=== PATIENT | female | born 1960 | race Caucasian/White ===

== ENCOUNTER → 2018-09-22 | Outpatient (CLI) | payer MEDICARE ==
[~2018-09-22] MED LIST: IOPAMIDOL 370 MG/ML 200 ML INFUS..BTL INJ ONE; SODIUM CHLORIDE 0.9% 50ML 50 ML ONE
[2018-09-22 12:27] LABS: BLOOD UREA NITROGEN 15 mg/dL (7-26); BUN/CREATININE RATIO 19 (6-25); CREATININE, SERUM 0.79 mg/dL (0.57-1.11); EST GLOMERULAR FILTRATION RATE > 60 ML/MIN (60-)
--- NOTE | 2018-09-22 18:12 | Diagnostic Imaging Report ---
EXAM: CT ABDOMEN AND PELVIS with IV CONTRAST DATE: 09/22/2018 Time stamp on Exam: 1:03 PM INDICATION: Gastroparesis COMPARISON: None TECHNIQUE: The abdomen and pelvis were scanned using a multidetector helical scanner. Coronal and sagittal reformations were obtained. Routine protocol performed. Low-dose technique was utilized. IV Contrast: 100 cc of Isovue-[id number]. Oral Contrast: Water Radiation Dose: Total DLP 795.00 mGy*cm Estimated effective dose: DLP x 0.015 x size factor FINDINGS: LOWER THORAX: Bibasilar atelectasis; right side worse than the left. LIVER: No masses with diffuse fatty infiltration of the liver. BILIARY: The gallbladder is unremarkable. No ductal dilatation. SPLEEN: No masses PANCREAS: No masses ADRENALS: No nodules KIDNEYS: Symmetric perfusion. No enhancing masses. No hydronephrosis. Hyperdense left upper pole cystic lesion measures 2.9 cm in maximal size and has CT attenuation numbers of 22-37 Hounsfield units. GI TRACT: Massive dilatation of the body and antrum of the stomach. Fundus appears normal. Moderate amount of retained fecal material present throughout the colon. VESSELS: Atherosclerotic calcification. PERITONEUM/RETROPERITONEUM: No free air or fluid LYMPH NODES: No lymphadenopathy REPRODUCTIVE ORGANS: Unremarkable BLADDER: Townsend catheter within a deflated bladder. SOFT TISSUES: Unremarkable BONES: No suspicious bone lesions. IMPRESSION: 1. Gastroparesis with marked dilatation of the body and antrum of the stomach. 2. Left upper pole renal cystic lesion is indeterminant with increased Hounsfield units-renal sonography would be of benefit for further characterization. 3. Diffuse fatty infiltration of the liver without focal mass. 4. Large amount of retained stool throughout the colon. Signed by: Dr. Torres Louis DO on 09/22/2018 6:09 PM
== END ==
LOC: CT 11:17
PROVIDERS: ATTEND Internal Medicine Gastroenterology
DX: K44.9 Diaphragmatic hernia without obstruction or gangrene (principal); K31.84 Gastroparesis; K25.3 Acute gastric ulcer without hemorrhage or perforation; K21.0 Gastro-esophageal reflux disease with esophagitis
CPT/HCPCS: 36415; 74177; 82565; 84520; Q9967